=== PATIENT | male | born 1950 | race Caucasian/White ===

== ENCOUNTER → 2017-03-25 | Day surgery (SDC) | payer OTHER, MEDICARE ==
[~2017-03-25] VITALS: Ht 182.9 cm; Wt 104.5 kg
[~2017-03-25] MED LIST: ASPI81TA11 PO; CHLORHEXIDINE GLUCONATE 2 % 1 PACK (2 CLOTHS) TOPICAL PRN; FLURBIPROFEN 0.03% OPHT SOLN 2.5 ML BTL RIGHT EYE SCH; IBUP-1133 PO; INSULIN HUMAN REGULAR 1,000 UNITS/10 ML VIAL SQ PRN; LACTATED RINGER'S 1000 ML IV PRN; LIDOCAINE HCL 1% PF 30 ML VIAL ONE; LIDOCAINE HCL 2% JELLY 5 ML SYRINGE TOPICAL ONE; METOPROLOL TARTRATE 25 MG TAB PO PRN; POVIDONE IODINE 5% (ANTISEPSIS KIT) 4 APPLICATIONS EACH NARE PRN; PROPARACAINE HCL 0.5% OPHT SOLN 15 ML BTL RIGHT EYE ONE; SODIUM CHLORID 0.9% 500 ML IV PRN; SYMB80AE INH; TOBRAMYCIN/DEXAMETHASONE OPTH OINT 3.5 GM TUBE ONE; VENTAER INH
[2017-03-25] MEDS: PHENYLEPHRINE HCL 10% OPTH SOLN 5 ML BTL RIGHT EYE SCH ×4 (07:05→07:20)
[2017-03-25] MEDS: TROPICAMIDE 1% OPHT SOLN 15 ML BTL RIGHT EYE SCH ×4 (07:05→07:20)
[2017-03-25] MEDS: CYCLOPENTOLATE HCL 1% OPHT SOLN 2 ML BTL RIGHT EYE SCH ×4 (07:05→07:20)
[2017-03-25 08:58] VITALS: TEMP 98.1
[2017-03-25 09:14] VITALS: BP 151/94; PULSE 58; RESP 16; O2SAT 95
--- NOTE | 2017-03-25 10:09 | MP ---
cc: SERGIO BALES M.D. [facility] #: [id number] DATE: 03/25/2017 PREOPERATIVE DIAGNOSIS: Visually significant cataract right eye. POSTOPERATIVE DIAGNOSIS: Visually significant cataract right eye. OPERATION: Phacoemulsification with posterior chamber lens implantation, right eye. SURGEON: Sergio Bales MD ANESTHESIA: Topical with MAC. COMPLICATIONS: None. PROCEDURE: After informed consent was obtained, the patient was brought into the operative suite and placed on appropriate monitors by the Anesthesia Service. The patient had been given dilating drops and topical lidocaine gel in the holding area. The patient's operative eye was then prepped and draped in the usual sterile fashion. A wire lid speculum was placed. Further 2% lidocaine was then dropped on the cornea prior to beginning the procedure. A paracentesis incision was made in the peripheral cornea with a 1 mm angel keratome. The anterior chamber was filled with viscoelastic. The anterior chamber was then entered through a stepped, clear corneal incision using a sharp 3 mm angel keratome. A circular tear capsulorrhexis was then made with a bent needle cystitome. Following hydrodissection of the lens nucleus with balance saline, phacoemulsification of the nucleus was performed using a modified chopping technique. The remaining cortex was removed with irrigation/aspiration. The prior two procedures were both performed using the handpieces of the [employer] phaco unit. The capsular bag was then filled with viscoelastic. The intraocular lens was then injected into the capsular bag and positioned. The type of intraocular lens and its power can be found elsewhere in this chart. The remaining viscoelastic was then removed from the anterior chamber with the IA handpiece. The anterior chamber was reformed with balanced saline. The wound was then closed securely with stromal hydration. It was found to be watertight to an intraocular pressure of at least 30 mmHg by palpation. A small amount of balanced salt solution was then removed through the paracentesis site and the intraocular pressure at the end of the case was approximately 20 by palpation. All drapes were then removed. TobraDex ointment was then placed in the eye, which was closed beneath a semi-pressure patch dressing. The patient tolerated this procedure well and left the operating room awake and alert. The patient is to follow-up in my office in the morning. MD MARCUS Morrison/MARIMAR /9:58 AM /10:05 AM
== END | disposition home or self-care (01) ==
LOC: PHSDC 06:38
PROVIDERS: ATTEND Optometrist Occupational Vision
DX: H25.13 Age-related nuclear cataract, bilateral (principal); H35.371 Puckering of macula, right eye; H04.123 Dry eye syndrome of bilateral lacrimal glands; H43.811 Vitreous degeneration, right eye; M50.30 Other cervical disc degeneration, unspecified cervical region; M54.16 Radiculopathy, lumbar region; Z85.820 Personal history of malignant melanoma of skin; Z86.718 Personal history of other venous thrombosis and embolism
CPT/HCPCS: 00142; 66984; J7040; V2632

== ENCOUNTER → 2017-09-21 | Outpatient (CLI) | payer OTHER, MEDICARE ==
[~2017-09-21] MED LIST changes: -ASPI81TA11 PO; -CHLORHEXIDINE GLUCONATE 2 % 1 PACK (2 CLOTHS) TOPICAL PRN; -FLURBIPROFEN 0.03% OPHT SOLN 2.5 ML BTL RIGHT EYE SCH; -INSULIN HUMAN REGULAR 1,000 UNITS/10 ML VIAL SQ PRN; +KETO10 PO; -LACTATED RINGER'S 1000 ML IV PRN; -LIDOCAINE HCL 1% PF 30 ML VIAL ONE; -LIDOCAINE HCL 2% JELLY 5 ML SYRINGE TOPICAL ONE; -METOPROLOL TARTRATE 25 MG TAB PO PRN; -POVIDONE IODINE 5% (ANTISEPSIS KIT) 4 APPLICATIONS EACH NARE PRN; -PROPARACAINE HCL 0.5% OPHT SOLN 15 ML BTL RIGHT EYE ONE; -SODIUM CHLORID 0.9% 500 ML IV PRN; -TOBRAMYCIN/DEXAMETHASONE OPTH OINT 3.5 GM TUBE ONE; +UMEC1INH INH
[2017-09-21 11:00] LABS: HEMOGLOBIN 15.7 GM/DL (13.0-17.0); MEAN CORPUSCULAR HEMOGLOBIN 33.4 PG (27.0-34.0); MEAN CORPUSCULAR HGB CONC 34.8 % (32.0-36.0); PLATELET COUNT 220 TH/MM3 (150-450); RED BLOOD COUNT 4.69 MIL/MM3 (4.50-5.90); WHITE BLOOD COUNT 10.3 TH/MM3 (4.0-11.0)
--- NOTE | 2017-09-21 15:21 | EKG ---
Date Performed: 09/21/2017 Time Performed: 09:07:47 PTAGE: 67 years EKG: SINUS BRADYCARDIA BORDERLINE ECG Since the PREVIOUS TRACING , no significant change noted PREVIOUS TRACIN04/18/2014 23.11 DOCTOR: Josse Pace Interpretating Date/Time 09/21/2017 15:16:49
== END ==
LOC: CPRE 08:48
PROVIDERS: ATTEND Orthopaedic Surgery
DX: Z01.810 Encounter for preprocedural cardiovascular examination (principal); Z01.812 Encounter for preprocedural laboratory examination; S43.421A Sprain of right rotator cuff capsule, initial encounter; M19.011 Primary osteoarthritis, right shoulder; R94.31 Abnormal electrocardiogram [ECG] [EKG]; X58.XXXA Exposure to other specified factors, initial encounter
CPT/HCPCS: 36415; 85027; 93005

== ENCOUNTER → 2017-09-23 | Day surgery (SDC) | payer OTHER, MEDICARE ==
[~2017-09-23] VITALS: Ht 182.9 cm; Wt 105.9 kg
[~2017-09-23] MED LIST changes: +*RESP: ALBUTEROL 2.5 MG/3 ML NEB (PRN) PERIprocedural Use ONLY NEB ONE; +ACETAMINOPHEN 1000 MG/100 ML 100 ML IV ONE; +BUPIVACAINE HCL PF 0.5% 30 ML VIAL ONE; +BUPIVACAINE LIPOSOME PF 1.3% 20 ML VIAL ONE; +CHLORHEXIDINE GLUCONATE 2 % 1 PACK (2 CLOTHS) TOPICAL PRN; +DEXAMETHASONE SOD PHOS 4 MG/ML VIAL IV ONE; +DEXAMETHASONE SOD PHOS 4 MG/ML VIAL ONE; +DO NOT ADM ANY ANTICOAGULANT DRUGS PRN; +FAMOTIDINE 20 MG/2 ML VIAL ONE; +FAT EMULSION 20% INJ 0 ML ONE; +GENTAMICIN SULFATE 80 MG/2 ML VIAL ONE; +GLYCOPYRROLATE 1 MG/5 ML SYRINGE IV PUSH ONE; +KETOROLAC TROMETHAMINE 30 MG/ML (IVP) VIAL IVP ONE; +LACTATED RINGER'S 1000 ML INJ 1,000 ML IV ONE; +LACTATED RINGER'S 1000 ML IV PRN; +LIDOCAINE HCL 1% PF 5 ML SYRINGE OTHER ONE; +METOPROLOL TARTRATE 25 MG TAB PO PRN; +MIDAZOLAM HCL 2 MG/2 ML VIAL ONE; +NEOSTIGMINE 5 MG/5 ML SYRINGE IV PUSH ONE; +ONDANSETRON HCL 4 MG/2 ML VIAL IV ONE; +ONDANSETRON HCL 4 MG/2 ML VIAL IV PUSH PRN; +PHENYLEPHRINE HCL 10 MG/ML VIAL IV ONE; +POVIDONE IODINE 5% (ANTISEPSIS KIT) 4 APPLICATIONS EACH NARE PRN; +POVIDONE IODINE 7.5% SCRUB 118 ML BOTTLE TOPICAL SCH; +PROPOFOL 200 MG/20 ML AMP IV ONE; +ROCURONIUM INJ 50 MG/5 ML SYRINGE IV PUSH ONE; +SODIUM CHLORID 0.9% 500 ML IV PRN; +SODIUM CHLORIDE 0.9% 20 ML VIAL ONE; +ceFAZolin 1,000 MG/NS 100 ML IV SCH; +ceFAZolin INJ 1,000 MG VIAL IV ONE; +ePHEDrine/NS 25 MG/5 ML SYRINGE IV ONE; +oxyCODONE/ACETAMINOPHEN 5 MG/325 MG TAB PO PRN
[2017-09-23 08:00] VITALS: PULSE 77
--- NOTE | 2017-09-23 11:27 | PD.OP ---
Operative Report Date of Surgery: Sep 23, 2017 Preoperative Diagnosis: (1) Rotator cuff insufficiency of right shoulder (2) Subacromial impingement of right shoulder (3) Primary osteoarthritis, right shoulder Acromioclavicular arthritis. Postoperative Diagnosis: (1) Primary osteoarthritis, right shoulder (2) Subacromial impingement of right shoulder (3) Rotator cuff insufficiency of right shoulder Acromioclavicular arthritis. Procedure: Arthrotomy right shoulder with resection distal clavicle, subacromial decompression and repair rotator cuff tear, right shoulder. Anesthesia: General endotracheal with supplemental interscalene block regional and local with Exparel Surgeon: Galdino Hartley MD Dairy Feed Mixing Operator(s): CHARITY Corado Operation and Findings: Operative findings: The acromioclavicular joint has severe osteoarthritis with loss of articular cartilage and osteophytes. The glenohumeral joint appeared to be relatively normal. The supraspinatus and infraspinatus torn from the greater tuberosity and were retracted but were relatively easily brought into position. The biceps tendon was intact. He has distended adequately is some prominence of the anterior acromion. Procedure: The patient had an interscalene block regional anesthetic carried out and was brought to the operating room where a general endotracheal anesthetic was administered. He was placed into a beachchair position with a bolster behind the right shoulder. The shoulder was then prepped with alcohol, Hibiclens and ChloraPrep and draped in the usual manner. He received prophylactic antibiotics in the form of Ancef 2 g. An appropriate timeout procedure was carried out. After local anesthetic was administered, an incision was made along the upper portion of the distal clavicle across the acromion and out the anterolateral aspect of the shoulder. The incision was deepened through the subcutaneous tissues down to the periosteum of the distal clavicle and acromioclavicular capsule. The acromioclavicular joint was opened. The distal clavicle was excised with the oscillating saw. A rasp was used to smooth the edges. Attention was then directed more laterally to the subacromial area. Dissection was carried out subperiosteally anteriorly and laterally and the deltoid was split. The rotator cuff was identified tear identified. This was a massive tear of virtually the entire supraspinatus and infraspinatus. These were retracted back to the glenoid but were easily mobilized laterally to their original insertion site. These were tagged with sutures. The greater tuberosity was decorticated with a rongeur and fenestrated with a pick doing microfracture on the dorsum of the insertion site of the greater tuberosity. A suture tape and FiberWire were then passed into the rotator cuff with a horizontal mattress technique. These were then passed into a knotless [employer] anchor. A fenestration was made in the anterior aspect of the greater tuberosity for the anchor. The anchor was then impacted into place and seated appropriately. When this was seated. The stability of the repair was good. A second anchor was positioned posteriorly after using 2 FiberWire sutures and a suture tape with the same technique. These were passed through the fenestrations in the anchor as well. It was obvious that a third anchor would be necessary therefore the tape and FiberWire were placed for this as well. The posterior anchor was then impacted into place through the fenestration previously made with the punch. When this was adequately seated in a the same technique was used for the intervening anchor. This gave a watertight repair of the rotator cuff. The shoulder was irrigated. Local anesthetic was administered throughout the shoulder with Exparel. Wound closure then commenced using 0 Vicryl interrupted [id number] sutures with a transosseous technique in the greater tuberosity to reattach the deltoid into position. The periosteum was sutured with this technique bringing the deltoid back into position. The deltoid was repaired with a similar type suturing technique. The capsule of the acromioclavicular joint was likewise closed with the same technique. Subcutaneous tissues closed with 2-0 Vicryl simple sutures with buried knots. The skin was closed with continuous subcuticular closure of 4-0 Monocryl. Wound was dressed with Dermabond Prinio and an Optifoam dressing. His right arm was then placed into a sling and swath. He is transferred from the operating room to the recovery room in satisfactory condition having tolerated the procedure well. Counts were correct. Specimens: None. Angle Hartley MD (Charles) Sep 23, 2017 11:27
[2017-09-23 15:30] VITALS: BP 135/87; PULSE 81; RESP 20; TEMP 97.9; O2SAT 96
== END | disposition home or self-care (01) ==
LOC: HSDC 06:46
PROVIDERS: ATTEND Orthopaedic Surgery
DX: M75.121 Complete rotator cuff tear or rupture of right shoulder, not specified as traumatic (principal); M75.41 Impingement syndrome of right shoulder; M19.011 Primary osteoarthritis, right shoulder; I10 Essential (primary) hypertension; J44.9 Chronic obstructive pulmonary disease, unspecified
CPT/HCPCS: 01630; 23120; 23420; 64415; 94640; 94664; C1713; C9290; J0131; J0690; J1100; J1580; J1885; J2250; J2370; J2405; J2710; J3010; J7120; J7613

== ENCOUNTER 2018-04-18 16:21 | Observation (INO) ==
--- NOTE | 2018-04-18 16:49 | XR ---
EXAM DATE: 04/18/2018 4:46 PM EST AGE/SEX: 67 years / Male INDICATIONS: Irregular heart rate. CLINICAL DATA: This is the patient's initial encounter. Patient reports that signs and symptoms have been present for 1 day and indicates a pain score of 0/10. MEDICAL/SURGICAL HISTORY: Asthma. . Cardiac ablation. COMPARISON: [facility], CHEST SINGLE AP, 05/12/2012. . FINDINGS: Marked elevation of the left hemidiaphragm. Right lung clear. Heart is enlarged. Pulmonary vascularity is normal. CONCLUSION: Elevation left hemidiaphragm otherwise negative Electronically signed by: Efe Fishman MD 04/18/2018 4:48 PM EST
[2018-04-18 16:58] LABS: Baso # (Auto) 0.5 th/mm3 (0.0-0.2); Baso % (Auto) 3.8 % (0.0-2.0); Eos # (Auto) 0.6 th/mm3 (0.0-0.4); Eos % (Auto) 4.4 % (0.0-4.0); Hematocrit 49.5 % (39.0-51.0); Hemoglobin 17.1 gm/dL (13.0-17.0); Lymph % (Auto) 22.6 % (9.0-44.0); Mean Corpuscular HGB Conc 34.5 % (32.0-36.0); Mean Corpuscular Hemoglobin 33.2 pg (27.0-34.0); Mean Corpuscular Volume 96.1 fL (80.0-100.0); Mean Platelet Volume 8.3 fL (7.0-11.0); Mono # (Auto) 1.1 th/mm3 (0.0-0.9); Mono % (Auto) 7.9 % (0.0-8.0); Neut # (Auto) 8.2 th/mm3 (1.8-7.7); Neut % (Auto) 61.3 % (16.0-70.0); Platelet Count 262 th/mm3 (150-450); Red Blood Count 5.14 mil/mm3 (4.50-5.90); White Blood Count 13.4 th/mm3 (4.0-11.0)
[2018-04-18] MEDS ORDERED: Sodium Chlor 0.9% Inj 500 ML IV.SIG SCH (17:00)
[2018-04-18 17:08] LABS: Chloride 101 meq/L (98-107); Potassium 3.7 meq/L (3.5-5.1); Sodium 137 meq/L (136-145)
[2018-04-18 17:12] LABS: Anion Gap 10 meq/L (5-15); Blood Urea Nitrogen 27 mg/dL (7-18); Carbon Dioxide 26.1 meq/L (21.0-32.0); Glucose,Random 117 mg/dL (74-106); Magnesium 2.2 mg/dL (1.5-2.5)
[2018-04-18 17:15] LABS: Alanine Aminotransferase 47 U/L (12-78); Aspartate Aminotransferase 23 U/L (15-37); Glomerular Filtration Rate 67 mL/min (>89)
[2018-04-18 17:16] LABS: Total Protein 8.1 g/dL (6.4-8.2)
[2018-04-18 17:18] LABS: Alkaline Phosphatase 58 U/L (45-117)
--- NOTE | 2018-04-18 18:56 | ED ---
HPI General Chief Complaint: Arrhythmia / Palpitations Stated Complaint: Palpitations/irregular/dizzy Time Seen by Provider: 04/18/18 16:34 Source: patient Mode of arrival: ambulatory Limitations: no limitations History of Present Illness HPI narrative: Patient is a 67-year-old male, past medical history significant for multiple previous episodes of atrial fibrillation some status post ablation some status post electrocardioversion, who presents with complaint of "I think I am in A. fib again." He believes that this began today. He denies any chest pain or shortness of breath at this time. He denies any fever or chills. He denies any nausea, vomiting, diarrhea. He is not on any blood thinners. complaint: Reports palpitations Onset (ago): hour(s) Duration: constant Severity: mild Context: Reports occurred during rest Arrhythmia history: Reports atrial fibrillation, history of ablation and history of electrical cardioversion Associated symptoms: Reports denies other symptoms Related Data Home Medications Medication Instructions Recorded Confirmed albuterol sulfate 2 puff INHALATION Q4-6H PRN 04/18/18 04/18/18 budesonide-formoterol [Symbicort] 2 puff INHALATION Q12H 04/18/18 04/18/18 umeclidinium [Incruse Ellipta] 1 dose INHALATION DAILY 04/18/18 04/18/18 Allergies Allergy/AdvReac Type Severity Reaction Status Date / Time No Known Allergies Allergy Verified 04/18/18 16:36 Review of Systems ROS: all other systems reviewed are negative [facility] Medical History Medical History Atrial fibrillation (Acute) COPD (chronic obstructive pulmonary disease) (Acute) Subclavian steal syndrome (Acute) Surgical History Surgical History History of back surgery (Acute) History of herniorrhaphy (Acute) S/P ablation of atrial fibrillation (Acute) Social History Social History Substance History: No History of Abuse Smoking Status: Former smoker Tobacco Type: Cigarettes How Often Do You Have a Drink Containing Alcohol: 4 or more times a week Recent Travel in [facility] within the Last 8 Weeks: No Recent Out of Country Travel within the Last 8 Weeks: No Immunization History Tetanus Immunization: Unsure Exam Narrative Exam Narrative: GENERAL: Well-appearing male in no acute distress SKIN: Focused skin assessment warm/dry. HEAD: Atraumatic. Normocephalic. EYES: Pupils equal and round. No scleral icterus. No injection or drainage. ENT: No nasal bleeding or discharge. Mucous membranes pink and moist. NECK: Trachea midline. No JVD. CARDIOVASCULAR: Tachycardiac and irregular. No murmur appreciated. RESPIRATORY: No accessory muscle use. Clear to auscultation. Breath sounds equal bilaterally. GASTROINTESTINAL: Abdomen soft, non-tender, nondistended. Hepatic and splenic margins not palpable. MUSCULOSKELETAL: No obvious deformities. No clubbing. No cyanosis. No edema. NEUROLOGICAL: Awake and alert. No obvious cranial nerve deficits. Motor grossly within normal limits. Normal speech. PSYCHIATRIC: Appropriate mood and affect; insight and judgment normal. Course Initial Documented Vital Signs Temperature 97.8 F 04/18/18 16:25 Pulse Rate 146 H 04/18/18 16:25 Respiratory Rate 18 04/18/18 16:25 Blood Pressure 182/119 H 04/18/18 16:25 Pulse Oximetry 94 L 04/18/18 16:25 Last Documented Vital Signs Temperature 97.8 F 04/18/18 16:25 Pulse Rate 92 H 04/18/18 19:14 Respiratory Rate 16 04/18/18 19:14 Blood Pressure 119/59 L 04/18/18 19:14 Pulse Oximetry 99 04/18/18 19:14 Medical Decision Making [facility] Narrative Medical decision making narrative: Patient is a 67-year-old male with history of previous A. fib who presents with complaint of A. fib. He is hemodynamically stable but is in RVR on arrival and was given 20 mg of diltiazem to which she responded well. His rate was controlled but he was still in atrial fibrillation. Electrolytes were within normal limits. Chest x- ray was normal. I spoke with Dr. Haywood, online marketing strategist labor relations specialist from [facility] whom recommended that he be started on calcium channel blockers and anticoagulants with possibility of being observation status overnight on telemetry. I then spoke with Dr. Su, hospitalist on-call, whom agreed to the admission. Medical Screen Exam Complete: Yes Emergency Medical Condition: Yes Differential Diagnosis Differential Diagnosis: Differential diagnosis includes but is not limited to atrial fibrillation, acute coronary syndrome, electrolyte abnormality, anemia. Medical Records Medical records reviewed: Yes I reviewed the patient's medical records. Lab Data Lab results reviewed: Yes I reviewed the patient's lab results. Result diagrams: 04/18/18 16:30 04/18/18 16:30 Lab Results 04/18/18 04/18/18 Range/Units 16:30 16:30 CBC w Diff Auto diff final WBC 13.4 H (4.0-11.0) th/mm3 RBC 5.14 (4.50-5.90) mil/mm3 Hgb 17.1 H (13.0-17.0) gm/dL Hct 49.5 (39.0-51.0) % MCV 96.1 (80.0-100.0) fL MCH 33.2 (27.0-34.0) pg MCHC 34.5 (32.0-36.0) % RDW 13.0 (11.6-17.2) % Plt Count 262 (150-450) th/mm3 MPV 8.3 (7.0-11.0) fL Neut % (Auto) 61.3 (16.0-70.0) % Lymph % (Auto) 22.6 (9.0-44.0) % Williamson % (Auto) 7.9 (0.0-8.0) % Eos % (Auto) 4.4 H (0.0-4.0) % Baso % (Auto) 3.8 H (0.0-2.0) % Neut # (Auto) 8.2 H (1.8-7.7) th/mm3 Lymph # (Auto) 3.0 (1.0-4.8) th/mm3 Williamson # (Auto) 1.1 H (0.0-0.9) th/mm3 Eos # (Auto) 0.6 H (0.0-0.4) th/mm3 Baso # (Auto) 0.5 H (0.0-0.2) th/mm3 WBC Differential . Differential Comment . Sodium 137 (136-145) meq/L Potassium 3.7 (3.5-5.1) meq/L Chloride 101 (98-107) meq/L Carbon Dioxide 26.1 (21.0-32.0) meq/L Anion Gap 10 (5-15) meq/L BUN 27 H (7-18) mg/dL Creatinine 1.10 (0.60-1.30) mg/dL Estimated GFR 67 L (>89) mL/min Random Glucose 117 H (74-106) mg/dL Calcium 9.0 (8.5-10.1) mg/dL Magnesium 2.2 (1.5-2.5) mg/dL Total Bilirubin 0.4 (0.2-1.0) mg/dL AST 23 (15-37) U/L ALT 47 (12-78) U/L Alkaline Phosphatase 58 (45-117) U/L Troponin I Less than 0.02 L (0.02-0.05) ng/mL Total Protein 8.1 (6.4-8.2) g/dL Albumin 4.0 (3.4-5.0) g/dL TSH 2.320 (0.358-3.740) uIU/mL Imaging Data Attestation: I personally reviewed and interpreted this imaging study as follows : Radiologist's impression: Chest X-Ray 04/18/18 16:34 CONCLUSION: Elevation left hemidiaphragm otherwise negative Discharge Plan Discharge Disposition Patient Disposition: 30 Still Patient Discharge Condition Condition: Stable Discharge Details Diagnosis: Atrial fibrillation with RVR Physicians Team ED Provider: Elsi Jerez Primary Care Provider: Dustin Potts Attending Provider: Wilfredo Su Discharge Interventions Interventions: Vital Signs Last Done: 04/18/18 18:00 Status ED Status: Admitted Observation Patient
--- NOTE | 2018-04-18 19:17 | P.HP ---
History of Present Illness Service: [facility] hospitalist service Primary Care Physician: Dustin Potts MD Chief Complaint: Heart palpitations History of Present Illness: History of present illness: This is a 67-year-old white male who presented to the emergency room with palpitations and slight dizziness. He has a prior history of atrial fibrillation about 6 years ago requiring a ablation therapy x2 within 1 month. He reportedly has been in sinus rhythm since then until today. When he arrived in the emergency room he was rapid rate and was given a Cardizem bolus which slowed his rate down to less than 100. He denies any chest pain, shortness of breath, and feels good at this time. The ER physician talked with the top cutter, Dr. Haywood, who recommended he be put on a calcium channel blair for his rate control and Eliquis for anticoagulation and that follow-up with cardiology as an outpatient can be arranged after he was observed overnight. Medical history: COPD Left subclavian steal syndrome Hyperlipidemia for which she is not on any cholesterol medication History of atrial fibrillation about 6-8 years ago as mentioned with prior ablation procedure twice within 1 month No heart attack, CHF, angina. He states he has had prior cardiac cath about 6- 8 years ago that showed normal coronary arteries. No diabetes mellitus No hypertension No liver disease No kidney disease No stroke No colon disease No peptic ulcer disease Surgical history: He had lumbar fusion of around L4 Cardiac ablation x2 for atrial fibrillation around 6-8 years ago Had a retinal pucker for which he had a right epiretinal peel Open right rotator cuff repair Umbilical hernia repair Prior cardiac cath as mentioned Allergies: None Family history: Mom of old age she did have emphysema Father at 71 he had Parkinson's disease Social history: Retired emergency room nurse He drinks a sixpack of beer per day He quit smoking around 6 years ago and smoked 2 packs/day x 40 years - Diagnosis (1) Atrial fibrillation with RVR (2) COPD (chronic obstructive pulmonary disease) (3) Subclavian steal syndrome (4) Hyperlipidemia Review of Systems Review of systems: General: No fever, chills, sweats. HEENT: No sore throat, runny nose, earache. Cardiovascular: No chest pain, shortness of breath, orthopnea. He had heart palpitations as mentioned. Pulmonary: No cough, shortness of breath, hemoptysis, pleuritic chest pain Gastrointestinal: No nausea, vomiting, abdominal pain, heartburn, indigestion, diarrhea, constipation, melena, rectal bleeding. : No dysuria, hematuria, urgency, frequency, incontinence. Musculoskeletal: Negative Psychiatry: No significant anxiety or depression Extremities: No edema Dermatology: No rash or itching Neuro: No headache, confusion, motor weakness, numbness or tingling PMFSH - History History Provided By: Patient - Medical History Medical History: Medical History (Last Updated 04/18/18 @ 16:27 by Ruby Horan RN) Atrial fibrillation COPD (chronic obstructive pulmonary disease) Subclavian steal syndrome - Surgical History Surgical History: Surgical History (Last Updated 04/18/18 @ 16:27 by Ruby Horan RN) History of back surgery History of herniorrhaphy S/P ablation of atrial fibrillation - Tobacco History Tobacco Use In Past 30 Days: No Smoking Status: Former smoker Tobacco Type: Cigarettes - Alcohol History How Often Do You Have a Drink Containing Alcohol: 4 or more times a week - Substance Use History Substance History: No History of Abuse - Travel History Recent Travel in the [place] Within the Last 8 Weeks: No Recent Travel Out of the Country Within the Last 8 Weeks: No - Immunization History Tetanus Immunization: Unsure Medications and Allergies Active Medications: Active Medications Albuterol (Ventolin Hfa Inh) 2 puff INH Q4-6H PRN PRN Reason: Shortness Of Breath Or Wheezing Apixaban (Eliquis) 5 mg PO BID [facility] Budesonide/Formoterol Fumarate (Symbicort 160/4.5 Mcg Inh) 2 puff INH Q12H [facility] Non-Formulary Medication (Umeclidinium [Incruse Ellipta]) 1 dose INHALATION DAILY [facility] Sodium Chloride (Ns Flush) 2 ml IV.FLUSH UNSCH PRN PRN Reason: FLUSH AFTER USING IV ACCESS Sodium Chloride (Ns Flush) 2 ml IV.FLUSH PRN PRN PRN Reason: FLUSH AFTER USING IV ACCESS Sodium Chloride (Ns Flush) 2 ml IV.FLUSH BID [facility] Allergies Allergy/AdvReac Type Severity Reaction Status Date / Time No Known Allergies Allergy Verified 04/18/18 16:36 Home Medications Medication Instructions Recorded Confirmed Type albuterol sulfate 2 puff INHALATION Q4-6H PRN 04/18/18 04/18/18 History budesonide-formoterol [Symbicort] 2 puff INHALATION Q12H 04/18/18 04/18/18 History umeclidinium [Incruse Ellipta] 1 dose INHALATION DAILY 04/18/18 04/18/18 History Exam Vital signs: Vital Signs 04/18/18 16:25 04/18/18 17:00 04/18/18 17:06 Temperature 97.8 F Pulse Rate 146 H 77 132 H Respiratory Rate 18 18 Blood Pressure 182/119 H 139/98 H Pulse Oximetry 94 L 95 96 04/18/18 18:00 Temperature Pulse Rate 81 Respiratory Rate 18 Blood Pressure 108/72 Pulse Oximetry 95 Intake & Output 04/18/18 04/18/18 04/19/18 06:59 18:59 06:59 Intake Total 500 / 500 Balance 500 / 500 Weight 107 kg Intake: IV 500 / 500 NS Inj 500 ML @ 1000 mls/hr IV. 500 / 500 SIG BOLUS GLADYS Rx#:[id number] Narrative: PE: This is a pleasant obese white male in no distress. HEENT: Pupils equal, EOMs intact, sclera nonicteric, mouth without lesions, TMs intact, nose without lesions Neck: No JVD, neck is supple, no carotid bruit Heart: irregular irregular rhythm without murmurs or gallops Lungs: Clear to auscultation Abdomen: Soft, nontender, no masses, no organomegaly Extremities: No edema, pulses palpated and 2 +, no calf tenderness Skin: Without lesions or rash Neuro: Alert, oriented, normal motor exam, sensation intact, cranial nerves intact Results - Labs CBC & Chem 7: 04/18/18 16:30 04/18/18 16:30 Labs: Laboratory Results - last 24 hr 04/18/18 04/18/18 16:30 16:30 CBC w Diff Auto diff final WBC 13.4 H RBC 5.14 Hgb 17.1 H Hct 49.5 MCV 96.1 MCH 33.2 MCHC 34.5 RDW 13.0 Plt Count 262 MPV 8.3 Neut % (Auto) 61.3 Lymph % (Auto) 22.6 [place] % (Auto) 7.9 Eos % (Auto) 4.4 H Baso % (Auto) 3.8 H Neut # (Auto) 8.2 H Lymph # (Auto) 3.0 [place] # (Auto) 1.1 H Eos # (Auto) 0.6 H Baso # (Auto) 0.5 H WBC Differential . Differential Comment . Sodium 137 Potassium 3.7 Chloride 101 Carbon Dioxide 26.1 Anion Gap 10 BUN 27 H Creatinine 1.10 Estimated GFR 67 L Random Glucose 117 H Calcium 9.0 Magnesium 2.2 Total Bilirubin 0.4 AST 23 ALT 47 Alkaline Phosphatase 58 Troponin I Less than 0.02 L Total Protein 8.1 Albumin 4.0 TSH 2.320 - Imaging Impressions Chest X-Ray 04/18/18 16:34 CONCLUSION: Elevation left hemidiaphragm otherwise negative Caprini VTE Risk Assessment Caprini VTE Risk Assessment: Moderate/High Risk (score >= 2) Caprini Risk Assessment Model: Point Value = 1 Point Value = 2 Point Value = 3 Point Value = 5 Age 41-60 Minor surgery BMI > 25 kg/m2 Swollen legs Varicose veins or History of unexplained or recurrent spontaneous Oral contraceptives or hormone replacement Sepsis (< 1 month) Serious lung disease, including pneumonia (< 1 month) Abnormal pulmonary function Acute myocardial infarction Congestive heart failure (< 1 month) History of inflammatory bowel disease Medical patient at bed rest Age 61-74 Arthroscopic surgery Major open surgery (> 45 min) Laparoscopic surgery (> 45 min) Malignancy Confined to bed (> 72 hours) Immobilizing plaster cast Central venous access Age >= 75 History of VTE Family history of VTE Factor V Leiden Prothrombin [id number] Lupus anticoagulant Anticardiolipin antibodies Elevated serum homocysteine Heparin-induced thrombocytopenia Other congenital or acquired thrombophilia Stroke (< 1 month) Elective arthroplasty Hip, pelvis, or leg fracture Acute spinal cord injury (< 1 month) Prophylaxis Regimen: Total Risk Factor Score Risk Level Prophylaxis Regimen 0-1 Low Early ambulation 2 Moderate Order ONE of the following: *Sequential Compression Device (SCD) *Heparin 5000 units SQ BID 3-4 Higher Order ONE of the following medications: *Heparin 5000 units SQ TID *Enoxaparin/Lovenox 40 mg SQ daily (WT < 150 kg, CrCl > 30 mL/min) *Enoxaparin/Lovenox 30 mg SQ daily (WT < 150 kg, CrCl > 10-29 mL/min) *Enoxaparin/Lovenox 30 mg SQ BID (WT < 150 kg, CrCl > 30 mL/min) AND/OR *Sequential Compression Device (SCD) 5 or more Highest Order ONE of the following medications: *Heparin 5000 units SQ TID (Preferred with Epidurals) *Enoxaparin/Lovenox 40 mg SQ daily (WT < 150 kg, CrCl > 30 mL/min) *Enoxaparin/Lovenox 30 mg SQ daily (WT < 150 kg, CrCl > 10-29 mL/min) *Enoxaparin/Lovenox 30 mg SQ BID (WT < 150 kg, CrCl > 30 mL/min) AND *Sequential Compression Device (SCD) Assessment and Plan - Assessment (1) Atrial fibrillation with RVR Code(s): I48.91 - Unspecified atrial fibrillation Status: Acute (2) COPD (chronic obstructive pulmonary disease) Code(s): J44.9 - Chronic obstructive pulmonary disease, unspecified Status: Acute (3) Subclavian steal syndrome Code(s): G45.8 - Other transient cerebral ischemic attacks and related syndromes Status: Acute (4) Hyperlipidemia Code(s): E78.5 - Hyperlipidemia, unspecified Status: Acute - Plan Plan: Patient will be put on diltiazem extended release 240 mg 1 tablet daily. He will be put on anticoagulation with Eliquis 5 mg twice a day. A 2D echocardiogram was ordered. We will check a T4 and TSH level. He will be monitored on telemetry tonight if he is and if he is stable he will likely be discharged tomorrow to follow-up with top cutter. The seam closer who did his prior ablation procedure was Dr. Rene so he likely can follow-up with him as an outpatient. Code Status: Full code Discussed Condition With: The plan of action was discussed with the patient.
[2018-04-18 19:56] LABS: Creatine Kinase 93 U/L (39-308)
[2018-04-18] MEDS: dilTIAZem CD 240 MG Capsule PO SCH (20:04)
[2018-04-18] MEDS: Budesonide-Formoterol 160/4.5 MCG 6 GM Inhaler INH SCH (22:21)
[2018-04-19 00:35] LABS: T4 (Thyroxine) 5.7 mcg/dL (4.5-12.1)
[2018-04-19 01:47] LABS: Chloride 104 meq/L (98-107); Potassium 3.4 meq/L (3.5-5.1); Sodium 140 meq/L (136-145)
[2018-04-19 01:49] LABS: Calcium 8.4 mg/dL (8.5-10.1)
[2018-04-19 01:50] LABS: Anion Gap 9 meq/L (5-15); Blood Urea Nitrogen 23 mg/dL (7-18); Carbon Dioxide 27.2 meq/L (21.0-32.0); Glucose,Random 154 mg/dL (74-106)
[2018-04-19 01:53] LABS: Glomerular Filtration Rate 81 mL/min (>89)
[2018-04-19 01:56] LABS: Creatine Kinase 121 U/L (39-308)
[2018-04-19 06:07] LABS: Baso # (Auto) 0.1 th/mm3 (0.0-0.2); Eos # (Auto) 0.4 th/mm3 (0.0-0.4); Eos % (Auto) 4.6 % (0.0-4.0); Hematocrit 46.4 % (39.0-51.0); Hemoglobin 15.9 gm/dL (13.0-17.0); Lymph # (Auto) 1.7 th/mm3 (1.0-4.8); Lymph % (Auto) 17.6 % (9.0-44.0); Mean Corpuscular HGB Conc 34.3 % (32.0-36.0); Mean Corpuscular Hemoglobin 33.2 pg (27.0-34.0); Mean Corpuscular Volume 96.7 fL (80.0-100.0); Mean Platelet Volume 7.8 fL (7.0-11.0); Mono # (Auto) 0.7 th/mm3 (0.0-0.9); Mono % (Auto) 7.4 % (0.0-8.0); Neut # (Auto) 6.8 th/mm3 (1.8-7.7); Neut % (Auto) 69.4 % (16.0-70.0); Platelet Count 213 th/mm3 (150-450); Red Cell Distribution Width 13.2 % (11.6-17.2); White Blood Count 9.7 th/mm3 (4.0-11.0)
[2018-04-19] MEDS: Budesonide-Formoterol 160/4.5 MCG 6 GM Inhaler INH SCH (06:20)
[2018-04-19] MEDS ORDERED: UMECLIDINIUM INH SCH (09:00)
[2018-04-19] MEDS: dilTIAZem CD 240 MG Capsule PO SCH (09:43)
--- NOTE | 2018-04-19 11:01 | P.DS ---
Date of admission: 04/18/18 17:52 Primary care physician: Dustin Potts MD Attending physician on discharge: Mariano Britton Anticipated date of discharge: 04/19/18 Brief History from admission: History of present illness: This is a 67-year-old white male who presented to the emergency room with palpitations and slight dizziness. He has a prior history of atrial fibrillation about 6 years ago requiring a ablation therapy x2 within 1 month. He reportedly has been in sinus rhythm since then until today. When he arrived in the emergency room he was rapid rate and was given a Cardizem bolus which slowed his rate down to less than 100. He denies any chest pain, shortness of breath, and feels good at this time. The ER physician talked with the caisson worker, Dr. Haywood, who recommended he be put on a calcium channel blair for his rate control and Eliquis for anticoagulation and that follow-up with cardiology as an outpatient can be arranged after he was observed overnight. Medical history: COPD Left subclavian steal syndrome Hyperlipidemia for which she is not on any cholesterol medication History of atrial fibrillation about 6-8 years ago as mentioned with prior ablation procedure twice within 1 month No heart attack, CHF, angina. He states he has had prior cardiac cath about 6- 8 years ago that showed normal coronary arteries. 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 fib with controlled rate has had no symptoms and as per cardiology will be discharged with follow-up to Dr. Rene his caisson worker who has had ablation procedure in the past on the patient will continue the above medicines and will call these medicines into his pharmacy [facility]. Continue his home medicines, patient being discharged in good condition. - Time Spent with Patient Total time spent providing and/or coordinating discharge services: 30 minutes Greater than 30 minutes - Quality: VTE Deep Vein Thrombosis/Pulmonary Embolism Present on Admission: No Exam Vital signs: Vital Signs 04/18/18 16:25 04/18/18 17:00 04/18/18 17:06 Temperature 97.8 F Pulse Rate 146 H 77 132 H Respiratory Rate 18 18 Blood Pressure 182/119 H 139/98 H Pulse Oximetry 94 L 95 96 04/18/18 18:00 04/18/18 19:14 04/18/18 20:00 Temperature 96.8 F L Pulse Rate 81 92 H 103 H Respiratory Rate 18 16 18 Blood Pressure 108/72 119/59 L 125/84 Pulse Oximetry 95 99 95 04/18/18 20:41 04/18/18 21:00 04/18/18 21:15 Temperature Pulse Rate 112 H 116 H Respiratory Rate 16 Blood Pressure Pulse Oximetry 95 04/19/18 00:00 04/19/18 00:15 04/19/18 04:00 Temperature 96.9 F L 96.8 F L Pulse Rate 116 H 100 H 54 L Respiratory Rate 18 18 Blood Pressure 134/80 120/86 Pulse Oximetry 94 L 94 L 04/19/18 08:00 Temperature 97.6 F Pulse Rate 97 H Respiratory Rate 16 Blood Pressure 122/89 Pulse Oximetry 94 L Intake & Output 04/18/18 04/19/18 04/19/18 18:59 06:59 18:59 Intake Total 500 / 500 1480 / 1480 Output Total 450 / 450 Balance 500 / 500 1030 / 1030 Weight 107 kg 107.3 kg Intake: IV 500 / 500 NS Inj 500 ML @ 1000 mls/hr IV. 500 / 500 SIG BOLUS GLADYS Rx#:[id number] Oral 1480 / 1480 Output: Urine 450 / 450 Other: # Voids 3 Date of Last Bowel Movement 04/18/18 04/19/18 Weight On Admission 107.6 kg Narrative: GENERAL: SKIN: Warm and dry. HEAD: Normocephalic. EYES: No scleral icterus. No injection or drainage. NECK: Supple, trachea midline. No JVD or lymphadenopathy. CARDIOVASCULAR: controlled irreg rate and rhythm without murmurs, gallops, or rubs. RESPIRATORY: Breath sounds equal bilaterally. No accessory muscle use. GASTROINTESTINAL: Abdomen soft, non-tender, nondistended. MUSCULOSKELETAL: No cyanosis, or edema. BACK: Nontender without obvious deformity. No CVA tenderness. Results Procedures completed during hospitalization: 2d echo Completed studies during hospitalization: 2d echo result review as outpatient Labs on day of discharge: Labs from last 24 hours 04/19/18 04/19/18 04/18/18 05:35 01:10 19:30 CBC w Diff Auto diff final WBC 9.7 RBC 4.80 Hgb 15.9 Hct 46.4 MCV 96.7 MCH 33.2 MCHC 34.3 RDW 13.2 Plt Count 213 MPV 7.8 Neut % (Auto) 69.4 Lymph % (Auto) 17.6 [place] % (Auto) 7.4 Eos % (Auto) 4.6 H Baso % (Auto) 1.0 Neut # (Auto) 6.8 Lymph # (Auto) 1.7 [place] # (Auto) 0.7 Eos # (Auto) 0.4 Baso # (Auto) 0.1 WBC Differential . Differential Comment . Sodium 140 Potassium 3.4 L Chloride 104 Carbon Dioxide 27.2 Anion Gap 9 BUN 23 H Creatinine 0.93 Estimated GFR 81 L Random Glucose 154 H Calcium 8.4 L Magnesium Total Bilirubin AST ALT Alkaline Phosphatase Total Creatine Kinase 121 93 Troponin I Less than 0.02 L Less than 0.02 L Total Protein Albumin TSH 1.500 Thyroxine (T4) 5.7 04/18/18 04/18/18 16:30 16:30 CBC w Diff Auto diff final WBC 13.4 H RBC 5.14 Hgb 17.1 H Hct 49.5 MCV 96.1 MCH 33.2 MCHC 34.5 RDW 13.0 Plt Count 262 MPV 8.3 Neut % (Auto) 61.3 Lymph % (Auto) 22.6 [place] % (Auto) 7.9 Eos % (Auto) 4.4 H Baso % (Auto) 3.8 H Neut # (Auto) 8.2 H Lymph # (Auto) 3.0 [place] # (Auto) 1.1 H Eos # (Auto) 0.6 H Baso # (Auto) 0.5 H WBC Differential . Differential Comment . Sodium 137 Potassium 3.7 Chloride 101 Carbon Dioxide 26.1 Anion Gap 10 BUN 27 H Creatinine 1.10 Estimated GFR 67 L Random Glucose 117 H Calcium 9.0 Magnesium 2.2 Total Bilirubin 0.4 AST 23 ALT 47 Alkaline Phosphatase 58 Total Creatine Kinase Troponin I Less than 0.02 L Total Protein 8.1 Albumin 4.0 TSH 2.320 Thyroxine (T4) - Impressions ITS Impressions Chest X-Ray 04/18/18 16:34 CONCLUSION: Elevation left hemidiaphragm otherwise negative - Additional Comments Patient did have slight decrease potassium on lab work day of discharge will give potassium 10 meq before discharge Discharge Plan - Discharge Disposition Patient Disposition: 01 Discharge Home - Discharge Condition Condition: Stable - Discharge Order Discharge Orders: Discharge Order (Routine); Ordered 04/19/18 Ordered By: Mariano Britton - Discharge Details Anticipated Discharge Date: 04/19/18 Discharge Comment: follow up cardiology - Physicians Team Primary Care Provider: Dustin Potts Attending Provider: Wilfredo Su
--- NOTE | 2018-04-19 11:47 | ECHRPT ---
Indication: ATRIAL FIB CONCLUSIONS Technically very difficult study making assessment of left ventricular function and wall motion subo ptimal. Grossly, left ventricular function and size appear to be normal. Regional wall motion abnormalities cannot be excluded on the basis of this study. Moderate mitral annular calcification. The aortic valve is not well visualized. Possible moderate sclerosis of the noncoronary cusp. BP: / HR: Rhythm: Sinus MEASUREMENTS (Male / Female) Normal Values Technical Quality:Technically difficult study 2D ECHO LV Diastolic Diameter PLAX 2.4 cm 4.2 - 5.9 / 3.9 - 5.3 cm LV Systolic Diameter PLAX 1.6 cm IVS Diastolic Thickness 1.1 cm 0.6 - 1.0 / 0.6 - 0.9 cm LVPW Diastolic Thickness 1.2 cm 0.6 - 1.0 / 0.6 - 0.9 cm LV Relative Wall Thickness 1.0 LVOT Diameter 2.0 cm LA Systolic Diameter LX 3.0 cm 3.0 - 4.0 / 2.7 - 3.8 cm LV Ejection Fraction MOD 4C 60.9 % LV Ejection Fraction 4C AL 61.9 % M-MODE Aortic Root Diameter MM 2.6 cm LA Systolic Diameter MM 2.8 cm LA Ao Ratio MM 1.1 AV Cusp Separation MM 1.4 cm DOPPLER AV Peak Velocity 126.0 cm/s AV Peak Gradient 6.4 mmHg LVOT Peak Velocity 106.0 cm/s LVOT Peak Gradient 4.5 mmHg AV Area Cont Eq pk 2.6 cm MV Area PHT 2.9 cm PV Peak Velocity 81.4 cm/s PV Peak Gradient 2.7 mmHg FINDINGS LEFT VENTRICLE Technically very difficult study making assessment of left ventricular function and wall motion subo ptimal. Grossly, left ventricular function and size appear to be normal. Regional wall motion abnormalities cannot be excluded on the basis of this study. RIGHT VENTRICLE Normal right ventricular size and systolic function. LEFT ATRIUM The left atrial size is normal. RIGHT ATRIUM The right atrial size is normal. ATRIAL SEPTUM Normal atrial septal thickness without atrial level shunting by limited color doppler interrogation. AORTA The aortic root and proximal ascending aorta are normal in size on limited imaging. MITRAL VALVE Structurally normal mitral valve. No mitral valve stenosis or regurgitation. Moderate mitral annula r calcification. AORTIC VALVE The aortic valve is not well visualized. Possible moderate sclerosis of the noncoronary cusp. TRICUSPID VALVE Structurally normal tricuspid valve. No tricuspid valve stenosis or regurgitation. PULMONARY VALVE The pulmonary valve is not well visualized. VESSELS The inferior vena cava was not well visualized. PERICARDIUM No pericardial effusion. Akin Reyes MD (Electronically Signed) Final Date:19 April 2018 11:46
--- NOTE | 2018-04-19 14:30 | ECG ---
Date Performed: 04/18/2018 Time Performed: 17:06:22 PTAGE: 67 years EKG: ATRIAL FIBRILLATION POSSIBLE RIGHT VENTRICULAR CONDUCTION DELAY ST DEVIATION AND MODERATE T -WAVE ABNORMALITY, CONSIDER LATERAL ISCHEMIA Compared to previous tracing the patient is now rate con trolled ABNORMAL ECG PREVIOUS TRACING : 04/18/2018 16.23 DOCTOR: Honey Antunez Interpretating Date/Time 04/19/2018 14:29:29
--- NOTE | 2018-04-19 14:30 | ECG ---
Date Performed: 04/18/2018 Time Performed: 16:23:29 PTAGE: 67 years EKG: ATRIAL FIBRILLATION WITH RAPID VENTRICULAR RESPONSE POSSIBLE RIGHT VENTRICULAR CONDUCTION D ELAY NONSPECIFIC ST & T-WAVE ABNORMALITY ABNORMAL ECG Compared to PREVIOUS TRACING the patient is now in atrial fibrillation PREVIOUS TRACIN09/21/2017 09.07 DOCTOR: Honey Antunez Interpretating Date/Time 04/19/2018 14:28:40
== END 2018-04-19 12:15 | disposition home or self-care (01) ==
LOC: PHEDA 16:21 → PHED 16:21 → PH3 20:43
PROVIDERS: ADMIT Family Medicine; ATTEND Family Medicine
DX: F17.210 Nicotine dependence, cigarettes, uncomplicated; Z82.0 Family history of epilepsy and other diseases of the nervous system; J44.9 Chronic obstructive pulmonary disease, unspecified; I48.91 Unspecified atrial fibrillation; Z82.5 Family history of asthma and other chronic lower respiratory diseases; E78.5 Hyperlipidemia, unspecified; Z79.01 Long term (current) use of anticoagulants; Z79.51 Long term (current) use of inhaled steroids